=== PATIENT | male | born 1945 | race Caucasian/White ===

== ENCOUNTER 2021-12-24 12:59 | Outpatient (CLI) | payer MEDICARE, OTHER, SELFPAY ==
[2021-12-24 13:44] LABS: Creatinine* 0.7 mg/dL (0.5-1.5); Estimated Glomerular Filt Rate 94 ml/min
== END 2021-12-24 13:00 | disposition home or self-care (01) ==
PROVIDERS: PCP Surgery; Visit Provider Surgery Vascular Surgery
DX: I71.40 Abdominal aortic aneurysm, without rupture, unspecified (principal); J90 Pleural effusion, not elsewhere classified; K76.9 Liver disease, unspecified
CPT/HCPCS: 36415; 82565

== ENCOUNTER 2021-12-25 09:57 | Outpatient (CLI) | payer MEDICARE, OTHER, SELFPAY ==
--- NOTE | 2021-12-25 10:02 | CRLHL7_ITS ---
For Patients: As a result of the Century Cures Act, medical imaging exams and procedure reports are released immediately into your electronic medical record. You may view this report before your referring provider. If you have questions, please contact your health care provider. Indication: AAA Technique: CT chest abdomen pelvis with without contrast Comparison: CT chest 09/18/2020, CT abdomen and pelvis 09/18/2020 Findings: 4.4 centimeter ascending thoracic aneurysm no dissection seen. Fusiform infrarenal abdominal aortic aneurysm with mural thrombus measuring 4.9 centimeters AP 5.4 cm transverse measured on series 6, image 268. 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 This is all not significantly changed from the prior study. There is interval enlargement of the left upper lobe nodular density measuring 2 cm.scattered ill-defined centrilobular ground-glass opacities that have increased from the prior studies seen in the inferior left lower lobe this could be infectious/inflammatory similar appearance of left basilar strandy opacities . the 2 centimeter peripheral density in the left lower lobe is slightly smaller there is findings of probable rounded atelectasis within the right lower lobe nodularity in the dependent distal trachea could be related to secretions. Trace chronic right effusion. Slight nodular contour to the liver could be seen with cirrhosis. Pancreas adrenal glands unremarkable cholecystectomy kidneys are unremarkable. Small cyst off the left kidney Urinary bladder incompletely distended with wall thickening possibly by mildly enlarged there is diverticulosis No suspicious bony lesions are seen. Impression: 1. Similar appearance of ascending thoracic aortic aneurysm measuring 4.4 centimeters. 2. Similar appearance of infrarenal abdominal aortic aneurysm with mural thrombus measuring 4.9 x 5.4 centimeters. 3. 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 4. Interval worsening of centrilobular opacities in the left upper lobe and nodular ground-glass opacities in the left lower lobe. Findings are favored to represent infectious or inflammatory etiologies including atypical infections. 5. Rounded atelectasis on the right. 6. There is interval enlargement of the left upper lobe nodular density measuring 2 cm. Malignancy would not be excluded. Recommend pulmonary consultation. [employer] - SOLID NODULES: SINGLE LOW RISK - nodule less than 6 mm: No routine follow-up. - nodule 6-8 mm: CT at 6-12 months, then consider CT at 18-24 months. - nodule greater than 8 mm: Consider CT at 3 months, PET/CT or tissue sampling. SINGLE HIGH RISK - nodule less than 6 mm: Optional CT at 12 months. - nodule 6-8 mm: CT at 6-12 months, then CT at 18-24 months. - nodule greater than 8 mm: Consider CT at 3 months, PET/CT or tissue sampling. MULTIPLE LOW RISK - nodule less than 6 mm: No routine follow-up. - nodule 6-8 mm: CT at 3-6 months, then consider CT at 18-24 months. - nodule greater than 8 mm: CT at 3-6 months, then consider CT at 18-24 months. MULTIPLE HIGH RISK - nodule less than 6 mm: Optional CT at 12 months. - nodule 6-8 mm: CT at 3-6 months, then at 18-24 months. - nodule greater than 8 mm: CT at 3-6 months, then at 18-24 months. Please note that all CT scans at this facility use dose modulation, iterative reconstruction, and/or weight-based dosing when appropriate to reduce radiation dose to as low as reasonably achievable. be/Dictated by: Bhumi Pak MD @ 12/25/2021 2:27:00 PM (Electronically Signed)
== END 2021-12-25 09:58 | disposition home or self-care (01) ==
PROVIDERS: PCP Surgery
DX: I71.40 Abdominal aortic aneurysm, without rupture, unspecified (principal)
CPT/HCPCS: 71270; 74177; Q9967